=== PATIENT | female | born 1955 | race Caucasian/White ===

== ENCOUNTER → 2022-05-11 | Outpatient (CLI) | payer BC, MEDICARE ==
[~2022-05-11] MED LIST: LEVAQUIN750 M1 PO; NKHM
== END | disposition home or self-care (01) ==
LOC: RAD 13:30
PROVIDERS: ATTEND Physician Assistant
DX: Z00.00 Encounter for general adult medical examination without abnormal findings (principal); M85.851 Other specified disorders of bone density and structure, right thigh

== ENCOUNTER → 2022-08-29 | Outpatient (CLI) | payer BC, MEDICARE | END | disposition home or self-care (01) | LOC: RAD 17:29 | PROVIDERS: ATTEND Physician Assistant | DX: M16.11 Unilateral primary osteoarthritis, right hip (principal) ==